=== PATIENT | male | born 1940 | race Caucasian/White ===

== ENCOUNTER 2018-10-18 07:36 | Emergency (ER) | payer OTHER, MEDICARE ==
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
--- NOTE | 2018-10-18 10:19 | RAD ---
Date of service: 10/18/2018 PROCEDURE: Radiographs of the Lumbar Spine. HISTORY: back pain COMPARISON: No prior. FINDINGS: BONES: There is normal alignment of the lumbar vertebral bodies. There is normal lumbar lordosis. There is diffuse bone demineralization. There is an acute superior endplate compression fracture in the L1 vertebral body without evidence for retropulsion. DISC SPACES: There is mild multilevel degenerative disc disease with anterior spurring, reduced disc heights and multilevel facet arthropathy, worse at L5-S1. OTHER FINDINGS: None. IMPRESSION: Acute superior endplate compression fracture in the L1 vertebral body. The final report is tagged to the PA review folder.
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
[2018-10-18] MEDS ORDERED: Lidocaine 2% Jelly (Uro-Jet) TOP ONE (15:19)
[2018-10-18] MEDS ORDERED: Lidocaine 5% Patch TD ONE (15:33)
[2018-10-18 15:38] VITALS: BP 142/66; PULSE 77; RESP 20; TEMP 97.7
[2018-10-19] MEDS ORDERED: Lidocaine 5% Patch TD SCH (10:00)
[2018-10-19 16:24] VITALS: O2SAT 100
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
== END 2018-10-18 15:56 | disposition home or self-care (01) ==
LOC: C.ER 07:36
DX: S82.55XA Nondisplaced fracture of medial malleolus of left tibia, initial encounter for closed fracture (principal); V03.90XA Pedestrian on foot injured in collision with car, pick-up truck or van, unspecified whether traffic or nontraffic accident, initial encounter; Y92.410 Unspecified street and highway as the place of occurrence of the external cause; I10 Essential (primary) hypertension; E78.00 Pure hypercholesterolemia, unspecified
CPT/HCPCS: 29515; 72100; 72148; 73610; 97116; 97161; 99285; G8978; G8979; G8980

== ENCOUNTER 2018-12-09 12:57 | Outpatient (CLI) | payer OTHER | END 2018-12-09 12:58 | disposition home or self-care (01) | LOC: C.RADH 12:57 | DX: S82.53XA Displaced fracture of medial malleolus of unspecified tibia, initial encounter for closed fracture (principal) ==